=== PATIENT | male | born 1980 ===

== ENCOUNTER 2020-02-04 12:06 | Inpatient (IN) | payer OTHER ==
[~2020-02-04] VITALS: Ht 175.3 cm; Wt 108.9 kg
[2020-02-04] MEDS ORDERED: COZAAR50 MG (12:16)
[2020-02-04] MEDS ORDERED: AMLODIPINE-OLM1 EAC2 (12:16)
== END 2020-02-07 12:05 | disposition home or self-care (01) | DRG 57 ==
LOC: ER 12:06 → SEC-K 20:32 → MEDI 20:32 → MEDJ 02-05 02:58 → MEDI 02-05 02:58 → SEC-K 02-05 03:36 → MEDI 02-05 11:14
PROVIDERS: ADMIT Internal Medicine; ATTEND Internal Medicine
PROC: BW28ZZZ Computerized Tomography (CT Scan) of Head (ICD-10-PCS; principal; 2020-02-04)
PROC: B030ZZZ Magnetic Resonance Imaging (MRI) of Brain (ICD-10-PCS; 2020-02-04)
PROC: B348ZZZ Ultrasonography of Bilateral Internal Carotid Arteries (ICD-10-PCS; 2020-02-04)
PROC: BR30ZZZ Magnetic Resonance Imaging (MRI) of Cervical Spine (ICD-10-PCS; 2020-02-04)
DX: G81.94 Hemiplegia, unspecified affecting left nondominant side (principal); G20 Parkinson's disease; I10 Essential (primary) hypertension; E66.8 Other obesity
CPT/HCPCS: 70551; 72141

== ENCOUNTER 2020-09-02 07:50 | Outpatient (CLI) | payer OTHER ==
[~2020-09-02 07:50] MED LIST: AMLODIPINE-OLM1 EAC2; COZAAR50 MG
== END 2020-09-02 08:12 | disposition home or self-care (01) ==
LOC: MRI 07:50
DX: G93.89 Other specified disorders of brain (principal); I69.30 Unspecified sequelae of cerebral infarction
CPT/HCPCS: 70552

== ENCOUNTER 2021-05-09 13:42 | Emergency (ER) | payer OTHER ==
[~2021-05-09] VITALS: Ht 177.8 cm; Wt 99.8 kg
[2021-05-09] MEDS ORDERED: LIPITOR20 MG PO (14:10)
[2021-05-09] MEDS ORDERED: CHILDREN'S ASPI81 MG (14:10)
[2021-05-09] MEDS ORDERED: TOPROL XL100 M1 PO (14:11)
[2021-05-09] MEDS ORDERED: LEVOFLOXACIN5 ML OP (14:11)
[2021-05-09] MEDS ORDERED: ALDACTONE25 MG PO (14:12)
== END 2021-05-09 18:21 | disposition home or self-care (01) ==
LOC: ER 13:42
DX: N39.0 Urinary tract infection, site not specified (principal); R50.9 Fever, unspecified; Z20.822 Contact with and (suspected) exposure to COVID-19; Z46.6 Encounter for fitting and adjustment of urinary device

== ENCOUNTER 2021-08-05 15:56 | Inpatient (IN) | payer OTHER ==
[~2021-08-05] VITALS: Ht 177.8 cm; Wt 90.7 kg
[~2021-08-05 15:56] MED LIST changes: +ALBUTEROL2.5 MG/3 M IH; +ALDACTONE25 MG PO; +AMLODIPINE BESYL5 MG; +AMLODIPINE BESYL5 MG PO; +CARBIDOPA-LEVO1 EA11 PO; +CHILDREN'S ASPI81 MG; +INTEGRA PLUS C1 EACH PO; +INTESTINEX680 M1 PO; +LEVOFLOXACIN5 ML OP; +LIPITOR20 MG PO; +LOSARTAN POTASS50 MG PO; +PEPCID AC20 MG PO; +SERTRALINE HCL100 MG PO; +SPIRONOLACTONE25 MG PO; +ST. JOSEPH ASPI81 M2 PO; +TOPROL XL100 M1 PO; +VITAMIN D3125 MC2 PO
[2021-09-07] MEDS ORDERED: ST. JOSEPH ASPI81 M2 GT (15:40)
[2021-09-07] MEDS ORDERED: SERTRALINE HCL100 MG GT (15:40)
[2021-09-07] MEDS ORDERED: LOSARTAN POTASS50 MG GT (15:40)
[2021-09-07] MEDS ORDERED: CARBIDOPA-LEVO1 EA11 NGT (15:40)
[2021-09-07] MEDS ORDERED: VITAMIN D3125 MC2 GT (15:40)
[2021-09-07] MEDS ORDERED: AMLODIPINE BESYL5 MG PO (15:40)
[2021-09-07] MEDS ORDERED: LANSOPRAZOLE30 MG GT (15:40)
[2021-09-07] MEDS ORDERED: LIPITOR20 MG GT (15:40)
[2021-09-07] MEDS ORDERED: INTESTINEX680 M1 GT (15:40)
[2021-09-07] MEDS ORDERED: SPIRONOLACTONE25 MG GT (15:40)
== END 2021-09-07 20:03 | DRG 477 ==
LOC: ER 15:56 → MEDJ 08-06 12:01 → O/R 08-30 09:09 → MEDJ 08-30 09:10
PROVIDERS: ADMIT Internal Medicine; ATTEND Internal Medicine
PROC: 0QB10ZX Excision of Sacrum, Open Approach, Diagnostic (ICD-10-PCS; principal; 2021-08-06)
PROC: 02HV33Z Insertion of Infusion Device into Superior Vena Cava, Percutaneous Approach (ICD-10-PCS; 2021-08-06)
PROC: 4A12X4Z Monitoring of Cardiac Electrical Activity, External Approach (ICD-10-PCS; 2021-08-06)
PROC: 0JD90ZZ Extraction of Buttock Subcutaneous Tissue and Fascia, Open Approach (ICD-10-PCS; 2021-08-07)
PROC: 5A0945A Assistance with Respiratory Ventilation, 24-96 Consecutive Hours, High Flow/Velocity Cannula (ICD-10-PCS; 2021-08-07)
PROC: 0JD90ZZ Extraction of Buttock Subcutaneous Tissue and Fascia, Open Approach (ICD-10-PCS; 2021-08-10)
DX: M46.28 Osteomyelitis of vertebra, sacral and sacrococcygeal region (principal); L89.154 Pressure ulcer of sacral region, stage 4; J69.0 Pneumonitis due to inhalation of food and vomit; L89.323 Pressure ulcer of left buttock, stage 3; L89.313 Pressure ulcer of right buttock, stage 3; N39.0 Urinary tract infection, site not specified; G81.94 Hemiplegia, unspecified affecting left nondominant side; L89.529 Pressure ulcer of left ankle, unspecified stage; R13.19 Other dysphagia; G20 Parkinson's disease; Z93.1 Gastrostomy status; I10 Essential (primary) hypertension; Z74.01 Bed confinement status
CPT/HCPCS: 70544; 72141